=== PATIENT | male | born 1965 | race Hispanic/Latino ===

== ENCOUNTER 2017-01-10 19:11 | Observation (INO) | payer OTHER ==
[~2017-01-10] VITALS: Ht 160 cm; Wt 67.3 kg
[2017-01-10 19:22] VITALS: BP 133/61; PULSE 69; RESP 15; O2SAT 99
--- NOTE | 2017-01-10 19:31 | ED.REPORT ---
HPI-General Illness Date of Service Jan 10, 2017 ED Provider: Dr. Chicho Sahu This is a healthy 51-year-old male who presents via EMS for evaluation of near syncope and tongue and facial numbness. Evidently he was watching a movie in bed when he fell asleep. He got up out of bed and walk to his kitchen. As he was walking towards the kitchen he started to feel like he was going to black out. He then noticed that the left side of his face and the left side of his tongue was tingling and then it went numb. He felt very lightheaded after that. He did not have any facial weakness though. His speech was rapid and articulate throughout. EMS was called. By the time they got there the facial deficits had resolved. He was hypotensive in the field. He is brought in for evaluation. He presents now with no specific complaints. All symptoms have resolved. Nursing Notes Stated Complaint: DIZZY Chief Complaint: General Complaint Nursing Notes Reviewed: Yes Allergies: Coded Allergies: No Known Allergies (Unverified Allergy, Unknown, 01/11/17) Scheduled PRN Sildenafil Citrate (Viagra) 25 Mg Tablet 25 MG PO UD PRN PRN for sexual activity General Time Seen by MD: 19:31 Chief Complaint Dizziness Hx Obtained From: Spouse, Son, Daughter, Pressure Test Operator Arrived By: Ambulance Sudden in Onset?: Yes Onset Occurred: Just prior to arrival Symptom Duration: Since onset Severity: Current: No pain currently Recent Healthcare: No recent doctor visit, No recent hospitalization Similar Sx Previous: No Past Medical History Past Medical History healthy Past Surgical History denies Smoking History Unknown if Ever Smoker Social History Alcohol Use: "Social" Other Social History: Good social support, Local resident Ambulatory Status Independent Review of Systems Full Review of Systems Respiratory: Denies: Shortness of breath Cardiovascular: Denies: Chest pain GI: Denies: Nausea, Vomiting Neurologic: Reports: Dizziness, Lightheaded, Numbness (tongue numbness), Denies: Abnormal movement, Change LOC, Focal weakness, Headache, Slurred speech, Syncope, Weakness Complete sys rev & neg: except as marked. Physical Exam Vital Signs Vital Signs Date Time Temp Pulse Resp B/P Pulse Ox O2 Delivery O2 Flow Rate FiO2 01/10/17 23:01 57 16 126/63 97 Room Air 01/10/17 20:30 71 16 123/60 98 Room Air 01/10/17 19:22 37.1 69 15 133/61 99 Room Air Initial VS: Reviewed General/Constitutional: Awake, Alert, Well appearing Head / Eyes: Atraumatic, Normocephalic no facial droop Mouth: Positive: Mucous membranes dry tongue numbness Respiratory / Chest: Atraumatic, Breath sounds NL, Breath sounds = bilat Cardiovascular: Heart rate NL, Regular rhythm, Heart sounds NL Upper Extremities Upper Extremity / MS: Atraumatic, Full range of motion, No deformity Wrist / Hand: Atraumatic, Full range of motion, No deformity Lower Extremity / Pelvis / MS: Atraumatic, Full range of motion, No deformity Ankle / Foot: Atraumatic, Full range of motion, No deformity Skin: Atraumatic, Color NL, No rash Neurologic: Oriented X3, Speech NL, No motor deficits Interpretation & Diagnostics Lab Results Interpretation Result Diagram: 01/10/17192101/10/171921 Test 01/10/17 00:55 01/10/17 19:22 01/10/17 22:45 01/10/17 22:49 Urine Color Straw (YELLOW) Urine Appearance Clear (CLEAR,HAZY) Urine pH 6.5 (5.0-8.0) Urine Specific [place] 1.004 (1.003-1.035) Urine Protein Negativemg/dL (NEG,TRACE) Urine Glucose (UA) Negativemg/dL (NEGATIVE) Urine Ketones Negativemg/dL (NEGATIVE) Urine Occult Blood Negative (NEGATIVE) Urine Nitrite Negative (NEGATIVE) Urine Bilirubin Negative (NEGATIVE) Urine Urobilinogen Normalmg/dL (NORMAL) Urine Leukocyte Esterase Negative (NEGATIVE) Urine RBC 0-2/hpf (0-2) Urine WBC 0-5/hpf (0-5) Urine Epithelial Cells Occasional/hpf (NONE-MOD) Urine Crystals None seen (NONE SEEN) Urine Bacteria None/hpf (NONE-FEW) Urine Hyaline Casts None/lpf (NONE) Urine Granular Casts None seen (NONE SEEN) Urine Waxy Casts None seen (NONE SEEN) Urine Red Blood Cell Casts None seen (NONE SEEN) Urine White Blood Cell Casts None seen (NONE SEEN) Urine Mucus None seen (None Seen) Urine Trichomonas None seen (NONE SEEN) Urine Yeast None (NONE SEEN) Urinalysis Comment None Urine Culture Reflexed Not indicated White Blood Count 6.8th/mm3 (3.8-10.1) Red Blood Count 4.16mil/mm3 (4.40-5.80) Hemoglobin 12.2g/dL (13.8-17.2) Hematocrit 36.8% (41.0-50.0) Mean Corpuscular Volume 88.5fL (81-100) Mean Corpuscular Hemoglobin 29.3pg (27.0-35.0) Mean Corpuscular Hemoglobin Concent 33.2% (32.0-37.0) Red Cell Distribution Width 13.4% (12.3-15.4) Platelet Count 342bil/L (150-400) Neutrophils (%) (Auto) 29.2% (40-74) Lymphocytes (%) (Auto) 54.3% (14-46) Monocytes (%) (Auto) 9.4% (4-12) Eosinophils (%) (Auto) 6.5% (0-5) Basophils (%) (Auto) 0.3% (0-3) D-Dimer < 0.50mg/L FEU (<0.50) Sodium Level 137mEq/L (134-144) Potassium Level 3.6mEq/L (3.5-5.2) Chloride Level 100mEq/L (97-108) Carbon Dioxide Level 23mmol/L (18-29) Blood Urea Nitrogen 21mg/dL (6-24) Creatinine 0.72mg/dL (0.76-1.27) Estimat Glomerular Filtration Rate 122mL/min (>59) Glucose Level 139mg/dL (60-99) Calcium Level 8.5mg/dL (8.5-10.1) Magnesium Level 2.0mg/dL (1.6-2.6) Total Bilirubin 0.2mg/dL (0.0-1.2) Aspartate Amino Transf (AST/SGOT) 19U/L (0-50) Alanine Aminotransferase (ALT/SGPT) 15U/L (0-44) Alkaline Phosphatase 64U/L (25-150) Total Protein 6.1g/dL (6.4-8.4) Albumin 3.7g/dL (3.4-5.0) Troponin T 0.010ug/L (0.0-0.011) Triglycerides Level 104mg/dL (0-149) Cholesterol Level 165mg/dL (100-199) LDL Cholesterol, Calculated 83mg/dL (0-99) VLDL Cholesterol 20.800mg/dL HDL Cholesterol 61mg/dL (>39) Cholesterol/HDL Ratio 2.70 (0.0-4.4) ECG Interpretation Time: 21:34 Interpreted by: ED physician Normal ECG Interpretation: Normal sinus rhythm (rate 66) X-Ray Chest Interpretation Chest Xray Interpretation: IMPRESSION: No acute process. Dictated by: Giovanni Portillo M.D. on 01/10/2017 at 19:49 Approved by: Giovanni Portillo M.D. on 01/10/2017 at 19:49 View: Portable Interpretation / Wet Read by: Interpret - Radiologist CT Head Interpretation IMPRESSION: No acute intracranial abnormality. Dictated by: Giovanni Portillo M.D. on 01/10/2017 at 21:05 Approved by: Giovanni Portillo M.D. on 01/10/2017 at 21:06 Study: Head CT no contrast Interpretation / Wet Read by: Interpret - Radiologist Re-Eval/Medical Decision Med Decision/Clinical Course 2035: Plan for x-ray, fluid, EKG This certainly could have been orthostatic syncope. I cannot explain the left facial and tongue numbness though. TIAs in the differential. CAT scan of his brain was normal. NIH is now 0. He will be admitted to telemetry observation for MRI and conclusion of the stroke workup protocol. I will treat him with fluids and oral aspirin. Time of Eval: 20:36 Re-Evaluation/Progress Note: Plan for x-ray, fluid, EKG Consultation : Referral / Consult Name: Madiha Gibbs DO Consulted With: Hospitalist Call Returned at: 23:31 Chip Frier: Agrees with eval, Agrees with plan, Accepts admit Counseled Regarding: Diagnosis, Lab results, Need for follow-up, When/why to return to ED Discharge & Departure Primary Impression: Transient ischemic attack (TIA) Transient cerebral ischemia type: other Qualified Code: G45.8 - Other transient cerebral ischemic attacks and related syndromes Additional Impression: Near syncope Disposition: ADMITTED TO HOSPITAL Discharge Condition All VS Reviewed: Yes Condition: Stable Referrals: Jacob Young MD (PCP) Scribe Attestation Portion of this note were transcribed by Janelle Godoy. IDr. Sahu, personally performed the history, physical exam, and medical decision-making: I reviewed and confirmed the accuracy for the information in the transcribed note. Signed by: jj Cowan, 01/10/17 2200 copies to: Jacob Young MD, Todd P DO Jan 10, 2017 19:31 Janelle Godoy Jan 10, 2017 20:36
[2017-01-10 19:46] LABS: BASOPHILS % (AUTO) 0.3 % (0-3); EOSINOPHILS % (AUTO) 6.5 % (0-5); MONOCYTES % (AUTO) 9.4 % (4-12); Mean Corpuscular Hemoglobin 29.3 pg (27.0-35.0); Mean Corpuscular Volume 88.5 fL (81-100); NEUTROPHILS % (AUTO) 29.2 % (40-74); Platelet Count 342 bil/L (150-400)
--- NOTE | 2017-01-10 19:50 | DRSVH ---
PROCEDURE: X-RAY CHEST ONE VIEW, PORTABLE ([id number]) INDICATIONS: CHEST PAIN TECHNIQUE: One view of the chest was acquired. COMPARISON: None. FINDINGS: Surgical changes and devices: None. Lungs and pleura: No pleural effusions or pneumothorax. Lungs are clear. Mediastinum: Mediastinal contours appear normal. Heart size is normal. Bones and chest wall: No suspicious bony lesions. Overlying soft tissues appear unremarkable. IMPRESSION: No acute process. Dictated by: Giovanni Portillo M.D. on 01/10/2017 at 19:49 Approved by: Giovanni Portillo M.D. on 01/10/2017 at 19:49
[2017-01-10 20:01] LABS: TROPONIN T < 0.010 ug/L (0.0-0.011)
[2017-01-10 20:30] VITALS: BP 123/60; PULSE 71; RESP 16; O2SAT 98
[2017-01-10] MEDS ORDERED: 0.9% Sodium Chloride 1,000 ML IV SCH (20:40)
--- NOTE | 2017-01-10 21:07 | DRSVH ---
PROCEDURE: CT BRAIN WITHOUT CONTRAST ([id number]) INDICATIONS: near syncope, dizzy, tongue numbness TECHNIQUE: Noncontrast 4.5 mm thick angled axial sections acquired from the foramen magnum to the vertex, with c oronal reformats. COMPARISON: None. FINDINGS: Image quality: Excellent. CSF spaces: Basal cisterns are patent. No extra-axial fluid collections. Ventricles are normal in size and shape. Brain: No midline shift. No intracranial masses or hemorrhage. Garrido-white matter interface is norm al. Skull and face: Calvarium and visualized facial bones are intact, without suspicious lesions. Sinuses: Visualized sinuses and mastoids are clear. IMPRESSION: No acute intracranial abnormality. Dictated by: Giovanni Portillo M.D. on 01/10/2017 at 21:05 Approved by: Giovanni Portillo M.D. on 01/10/2017 at 21:06
[2017-01-10] MEDS ORDERED: 0.9% Sodium Chloride 1,000 ML IV ONE (22:40)
[2017-01-10 23:01] VITALS: BP 126/63; PULSE 57; RESP 16; O2SAT 97
[2017-01-10] MEDS ORDERED: Alum-Mag Hydrox-Simeth 30 mL Suspension PO PRN (23:50)
[2017-01-10] MEDS ORDERED: Ondansetron 2 mg/mL 2 mL Inj IVPUSH PRN (23:50)
[2017-01-10] MEDS ORDERED: VIAG25T PO (23:56)
[2017-01-11] VITALS (8 sets, daily range): BP systolic 125–149; BP diastolic 67–88; PULSE 52–60; RESP 16–18; O2SAT 97–99
[2017-01-11] MEDS ORDERED: Alum-Mag Hydrox-Simeth 30 mL Suspension PO PRN (00:55)
[2017-01-11] MEDS ORDERED: Polyethylene Glycol (PEG) 17 Gm Powder PO PRN (00:55)
[2017-01-11] MEDS ORDERED: Ondansetron 2 mg/mL 2 mL Inj IVPUSH PRN (00:55)
[2017-01-11 01:12] LABS: APPEARANCE,URINE CLEAR (CLEAR,HAZY); COLOR,URINE STRAW (YELLOW); OCCULT BLOOD,URINE NEGATIVE (NEGATIVE); PH,URINE 6.5 (5.0-8.0); UROBILINOGEN,URINE NORMAL (NORMAL)
--- NOTE | 2017-01-11 01:32 | NUR ---
ADMIT; 51 yr old male to room 1012 via gurney from e.r. with c/o left facial numbness and lightheadedness upon getting up at home. Lightheadedness lasted a short time and numbness lasted about 2 hrs pt stated. Denies any problems at this time. Stephanie calderón done in e.r. and pt. "passed" per Staci Thompson rn.
--- NOTE | 2017-01-11 02:42 | PCM.HPMED ---
Subjective Date of Service Jan 10, 2017 Primary Provider: Admitting Physician: Madiha Gibbs DO Primary Care Physician: Jacob Young MD Attending Physician: Admit Status: From the Emergency Department Chief Complaint: TIA History of Present Illness: Bradley Wilson is a Burkinan-speaking 51-year-old male without any significant past medical history who presents via EMS with near syncope and tongue and facial numbness. He says that when he woke up from a lying position and stood up, he felt light-headed and said that the room was spinning. He also says that he had left-sided numbness of his face and tongue, without any weakness. EMS was called and by the time they got there, the facial deficits had resolved, however he was hypotensive. He did not fall or have any loss of consciousness. He says that similar symptoms occurred once about 2-3 years ago and another time more than 18 years ago, and he may have lost consciousness on that first episode. He remembers that they could not find anything wrong with him at that time. He does note that he does feel like he's very thirsty and urinates frequently. Today, he denies fever, nausea, vomiting. He denies chest pain or pressure, cough, shortness of breath. He denies changes in vision, weakness. He also denies any problems with his vision, concentration, or focus. In the ED he did not present with any neurological deficits. Review of Systems: A comprehensive review of systems was conducted with the patient and found to be negative except as above in the History of Present Illness. Allergies Coded Allergies: No Known Allergies (Unverified Allergy, Unknown, 01/11/17) Home Medications None PMH None Reported Surgical History Ear Surgery Family History Unknown history of parents Sister: Hyperthyroidism Social History Occupation: Sales Service Supervisor Hx Alcohol Use: Yes (a couple drinks a month) Hx Substance Use: No Smoking Status: Never Smoker Living Arrangement: with Family Exam Vital Signs Vital Sign - Last Date Time Temp Pulse Resp B/P Pulse Ox O2 Delivery O2 Flow Rate FiO2 01/10/17 23:01 57 16 126/63 97 Room Air 01/10/17 19:22 37.1 Exam General: No acute distress, well-developed, well-nourished, appropriately interactive HEENT: Normocephalic, atraumatic. External ears without defect. Pupils equal, round, and reactive to light and accommodation. Anicteric sclerae, moist conjunctivae. Neck: Supple with full range of motion. No jugular venous distension. No bruits. No lymphadenopathy or thyromegaly. Cardiovascular: Regular rate and rhythm with no murmurs, rubs, or gallops appreciated Pulmonary: Clear to auscultation bilaterally with no crackles, wheezes, or rhonchi. Normal respiratory effort with no use of accessory muscles. Abdomen: Bowel tones present. Soft, nontender, nondistended. No hepatosplenomegaly or masses appreciated. Extremities: No clubbing, cyanosis, edema, or lymphadenopathy appreciated. Skin: Normal temperature, turgor, and texture; no rash, ulcers, or subcutaneous nodules appreciated. Neurological: Cranial nerves II-XII intact. Normal muscle strength, tone, and bulk. Reflexes, coordination, and sensory function within normal limits. No known gait impairment. Psychiatric: Normal mood and affect. Alert and oriented to person, place, and time. Lab and Diagnostics Labs Item Value Date Time Troponin T < 0.010 ug/L 01/10/171921 Troponin T 0.010 ug/L 01/10/172244 Triglycerides Level 104 mg/dL 01/10/172248 Cholesterol Level 165 mg/dL 01/10/172248 LDL Cholesterol, Calculated 83 mg/dL 01/10/172248 VLDL Cholesterol 20.800 mg/dL 01/10/172248 HDL Cholesterol 61 mg/dL 01/10/172248 Cholesterol/HDL Ratio 2.70 01/10/172248 D-Dimer < 0.50 mg/L FEU 01/10/171921 Result Diagram: 01/10/17192101/10/171921 X-Rays, CTs and MRIs PROCEDURE: X-RAY CHEST ONE VIEW, PORTABLE ([id number]) IMPRESSION: No acute process. Dictated and Approved by: Giovanni Portillo M.D. on 01/10/2017 at 19:49 PROCEDURE: CT BRAIN WITHOUT CONTRAST ([id number]) IMPRESSION: No acute intracranial abnormality. Dictated by: Giovanni Portillo M.D. on 01/10/2017 at 21:05 12-lead ECG Normal Sinus Rhythm Assessment & Plan Bradley Wilson is a Burkinan-speaking 51-year-old male without any significant past medical history who presented via EMS with near syncope and tongue and facial numbness, being worked up for TIA. Transient Ischemic Attack, Present on Admission Patient had left sided jaw numbness and tongue numbness. Resolved by the time EMS arrived however symptoms returned in ED. CT head unremarkable. Possible relation to orthostatic bp - Echocardiogram with Bubble Study - CTA Head and Neck, MRI Stroke protocol - Monitor on Telemetry - ASA given x1, ASA 325 daily - Atorvastatin 40mg qHS - Lipid panel, HgA1C, TSH, UA pending - Trop negative x2 - Orthostatic BP Elevated glucose, present on admission -no history of diabetes -hgbA1c pending Normocytic anemia, acute, POA -unclear baseline -continue to monitor Patient Status: Patient is admitted under observation status with expected length of stay less than 2 midnights due to severity of presenting symptoms and risk of adverse event. Code Status: Full Code GI Prophylaxis: Not indicated VTE Prophylaxis: Sub-Q Heparin (Unfractionated) VTE Mechanical Devices: Intermittant Pneumatic CD Resuscitation Status: CPR: Attempt Resuscitation Attending Statement The patient was seen and examined together with house staff on 01/10/2017 and I agree with the history, exam and plan as outlined in the note above. Roberto Gómez DO Jan 10, 2017 23:37 Madiha Gibbs DO Jan 11, 2017 03:52
--- NOTE | 2017-01-11 05:03 | NUR ---
NEURO CHECKS; wnl. No c/o voiced. Slept well during the night. and daughter in room. Addendum: 01/11/17 at 0508 by GUADALUPE GARSIA RN Doctor in to see pt at this time.
[2017-01-11 06:20] LABS: BASOPHILS % (AUTO) 0 % (0-3); EOSINOPHILS % (AUTO) 3.5 % (0-5); MONOCYTES % (AUTO) 9.4 % (4-12); Mean Corpuscular Hemoglobin 28.7 pg (27.0-35.0); Mean Corpuscular Volume 88.5 fL (81-100); NEUTROPHILS % (AUTO) 53.8 % (40-74); Platelet Count 290 bil/L (150-400)
[2017-01-11] MEDS: Heparin 5,000 Unit/mL Inj SUBQ SCH ×2 (08:47→16:30)
--- NOTE | 2017-01-11 12:26 | DRSVH ---
[facility] [address] [place] [address] Echocardiogram Report Name: DANIEL BLAIR Study Date: 01/11/2017 Height: 63 in Hospital Exam Location: [facility] Weight: 148 lb Gender: Male BSA: 1.7 m2 : 1965 Age: 51 yrs BP: 125/72 mmHg Reason For Study: TIA Ordering Physician: HOSPITALIST [facility] Performed By: Huber Montejo Referring Physician: Kirill [facility]ist Interpretation Summary Report prepared by Nallely Haro The left ventricle is normal in size, wall thickness, and systolic function without any focal wall motion abnormalities. The ejection fraction is estimated to be 60-65%. Bubble injected , a few bubbles seen on the left side after 9 cardiac cycles. There is no Doppler evidence for an interatrial shunt. There is no significant valvular heart disease. Procedure: A two-dimensional transthoracic echocardiogram with color flow and Doppler was performed. The study quality was technically adequate. There is no prior echocardiogram noted for this patient. A saline contrast injection was performed to assess for cardiac shunting. The patient was in normal sinus rhythm during the exam. Left Ventricle: The left ventricle is normal in size, wall thickness, and systolic function without any focal wall motion abnormalities. The ejection fraction is estimated to be 60-65%. Assessment of diastolic parameters indicates normal left ventricular diastolic function and normal filling pressures. Right Ventricle: The right ventricle is normal in size and function. Atria: Both atria are normal in size. There is no Doppler evidence for an interatrial shunt. Bubble injected , a few bubbles seen on the left side after 9 cardiac cycles. Mitral Valve: The mitral valve is normal in structure and function. There is trace mitral regurgitation. Aortic Valve: The aortic valve is trileaflet. The aortic valve opens well. No aortic regurgitation is present. Tricuspid Valve: The tricuspid valve is normal in structure and function. There is trace tricuspid regurgitation. The right ventricular systolic pressure is estimated at 22 mmHg assuming a right atrial pressure of 3 mm Hg. Pulmonic Valve: The pulmonic valve is normal in structure and function. There is trace pulmonic regurgitation. Great Vessels: The aortic root is normal size. The ascending aorta is normal in size. The aortic arch is normal in size. The pulmonary artery is normal size. The IVC is of normal diameter and collapses greater than 50% with a sniff. This suggests a low right atrial pressure of 3 mm Hg. Pericardium/ Pleura There is no pericardial effusion. There is no pleural effusion. MMode/2D Measurements & Calculations LVIDd: 5.3 cm RA long axis LVOT diam LVIDs: 3.2 cm LA A2 area: 19.2 cm FS: 39.8 % LA A4 area: 19.2 cm RA area AoV Opening EPSS: 0.82 cm LA length (vol): 5.8 cm IVSd: 0.85 cm LA vol: 54.0 ml : 17.1 cm Ao root diam LVPWd: 0.77 cm LA vol index RA vol : 47.8 ml asc Aorta RA Diam: 3.3 cm IVC diam: 1.5 cm : 28.1 mm2 LV foreman. diameter/BSA LV sys. diameter/BSA RVD1 (basal) RVD2 (mid) (cm/m^2): 3.1 (cm/m^2): 1.9 : 2.8 cm Doppler Measurements & Calculations Ao V2 max MV E max jcarlos MV E/A: 1.2 TR max jcarlos : 195.5 cm/sec : 89.5 cm/sec Med Peak E' Jcarlos : 218.6 cm/sec Ao max P.3 mmHg MV A max jcarlos TR max PG Ao mean P.0 mmHg : 76.2 cm/sec E/E' med: 8.9 : 19.1 mmHg LVOT Max Jcarlos Lat Peak E' Jcarlos PA V2 max : 105.5 cm/sec : 104.4 cm/sec CEDRIC(I,D): 2.2 cm E/E' lat: 6.1 PA mean PG sev ratio: 0.60 E/e' average: 7.5 PA Accel Time : 0.13 sec MV dec time: 0.20 sec Ao V2 mean LV V1 max PG PA V2 mean : 133.3 cm/sec : 80.9 cm/sec Ao V2 VTI: 38.1 cmLV V1 VTI: 22.7 cm CEDRIC(V,D): 1.9 cm2 CEDRIC indexed to BSA (cm^2/m^2): 1.3 Electronically signed by: Antonio Baltazar on Reading Physician:01/11/2017 12:25 PM
--- NOTE | 2017-01-11 13:49 | NUR ---
Social Work: Screening/Readiness for Discharge/Multi-Disciplinary Rounds D: EMR reviewed. Pt is a 51 y/o male Abelardo for TIA, near syncope per H&P. Pt does not have a readmit risk score assigned. SW met with pt and at bedside to conduct initial screening. Pt was alert and oriented x3. SW explained role and wrote phone number on white board and encouraged pt to contact SW for any discharge planning questions. Pt's insurance is [facility]. PCP is Jacob Young MD. SW provided DPOA/advanced directive ppw and instructions in Serbian - family stated pt can read Nepalese and they will help him complete ppw. A: Pt who is independent at baseline. Pt's capacity for self care addressed in rounds - no concerns identified. P: Pt to transport home with family via POV. YANETH Griffith
--- NOTE | 2017-01-11 15:18 | DRSVH ---
PROCEDURE: MRI STROKE PROTOCOL ([id number]) Pre- and post-contrast brain MRI, non-contrast brain MR angiogram, pre- and postcontrast neck MR jassi ogram INDICATIONS: Near syncope. TECHNIQUE: Brain: Noncontrast axial T1 spin echo, axial T2 fast spin echo, sagittal and axial FLAIR, coronal T2 fast spin echo, axial gradient echo, axial diffusion and ADC through the brain. After the administr ation of contrast, axial 3D VIBE of the cranial vasculature and brain. Brain MRA: Non-contrast 3-D time of flight MR angiogram, with multiple aocfzqy-awhcchxbf-qjzkytezdg (MIP) reformats performed. Neck MRA: Axial and sagittal TruFISP through the neck. Coronal dynamic MR angiogram during administ ration of contrast in the arterial and venous phases, with 3-dimenstional eazkstr-ijrpgeumw-kipvehunv n (MIP) reformats constructed from subtraction images. COMPARISON: [facility], CT, CT BRAIN WO CON, 01/10/2017, 20:57. FINDINGS: Image quality: Excellent. BRAIN: CSF spaces: Ventricles are normal in size and shape. Basal cisterns are patent. No extra-axial flu id collections. Brain: No intracranial bleeds or mass effects. There is a mild degree of patchy high FLAIR signal i ntensity predominantly located within the bifrontal periventricular and subcortical white matter. Gra y-white matter interface is normal. Diffusion weighted images show no acute ischemic insults. Brain stem appears normal. Normal intravascular flow voids are present. No abnormal intracranial enhancem ent. Skull and face: Calvarial marrow signal is normal. Orbits appear normal. Sinuses: Right maxillary sinus retention cyst is present. Moderate mucosal thickening within the righ t anterior ethmoid air cells is present. Mastoids are clear. BRAIN MR ANGIOGRAM: Anterior circulation: Intracranial internal carotid arteries are normal in size and enhancement. Th e flow within the paired anterior cerebral arteries is normal and symmetric. The flow within the mid dle cerebral arteries is normal and symmetric. The anterior communicating artery is seen. No stenos es, occlusions, or aneurysms. Posterior circulation: The visualized portions of the vertebral arteries demonstrate normal caliber, and join to form a normal appearing basilar artery. The flow within the posterior cerebral arteries is normal and symmetric. No stenoses, occlusions, or aneurysms. NECK MR ANGIOGRAM: Carotids: Great vessels demonstrate a conventional anatomy as they arise from the aortic arch. The origins of the common carotid arteries appear patent. The calibers and courses of both common caroti d arteries are normal. The bifurcation regions appear normal bilaterally. The internal carotid silverio lucrecia demonstrate normal course and caliber. Posterior circulation: The origins of the vertebral arteries appear patent. More superior portions of both vertebral arteries are not well-seen secondary to venous overlap. Distal bilateral vertebral arteries are patent. Miscellaneous: Subclavian arteries appear patent. Pre-contrast images through the neck show no soft tissue abnormalities. IMPRESSION: BRAIN MRI: 1. No acute intracranial abnormality. No recent infarct. 2. Mild nonspecific white matter disease predominantly within the bilateral frontal lobes. Differenti al considerations include early small vessel ischemic disease, diabetes mellitus, vasculitides, and d emyelinating disorders, such as multiple sclerosis. BRAIN MR ANGIOGRAM: Negative cerebral MR angiography. NECK MR ANGIOGRAM: 1. No internal carotid artery stenosis bilaterally. 2. Suboptimally visualized vertebral arteries which are patent as visualized. The estimate of stenosis included in the report of the imaging study was calculated using the NASCET method Dictated by: Giovanni Portillo M.D. on 01/11/2017 at 15:09 Approved by: Giovanni Portillo M.D. on 01/11/2017 at 15:15
[2017-01-11] MEDS ORDERED: ASPI81TA3 PO (16:15)
[2017-01-11] MEDS ORDERED: ATOR40TA69 PO (16:15)
--- NOTE | 2017-01-11 16:15 | PCM.PNMED ---
Subjective Date of Service Jan 11, 2017 Subjective Pt says symptoms have resolved. Exam Vital Signs Vital Sign - Last Date Time Temp Pulse Resp B/P Pulse Ox O2 Delivery O2 Flow Rate FiO2 01/11/17 12:45 37.1 57 18 142/72 99 Room Air Intake and Output 01/10/17 01/10/17 01/11/17 Cumulative From/Thru 15:00 23:00 07:00 01/10/17 22:56 - 01/11/17 01:18 Intake Total 2000 ml 2000 ml Balance 2000 ml 2000 ml Intake IV Total 2000 ml 2000 ml Exam General: No acute distress, well-developed, well-nourished, appropriately interactive HEENT: Normocephalic, atraumatic. External ears without defect. Pupils equal, round, and reactive to light and accommodation. Anicteric sclerae, moist conjunctivae. Neck: Supple with full range of motion. No jugular venous distension. No bruits. No lymphadenopathy or thyromegaly. Cardiovascular: Regular rate and rhythm with no murmurs, rubs, or gallops appreciated Pulmonary: Clear to auscultation bilaterally with no crackles, wheezes, or rhonchi. Normal respiratory effort with no use of accessory muscles. Abdomen: Bowel tones present. Soft, nontender, nondistended. No hepatosplenomegaly or masses appreciated. Extremities: No clubbing, cyanosis, edema, or lymphadenopathy appreciated. Skin: Normal temperature, turgor, and texture; no rash, ulcers, or subcutaneous nodules appreciated. Neurological: Cranial nerves II-XII intact. Normal muscle strength, tone, and bulk. Reflexes, coordination, and sensory function within normal limits. No known gait impairment. Psychiatric: Normal mood and affect. Alert and oriented to person, place, and time IVs and Medications Medications Reviewed: Medications were reviewed in detail Lab and Diagnostics Result Diagram: 01/11/17 0550 01/11/17 0550 X-Rays, CTs and MRIs Date of Service: 01/11/17 0800 MRI STROKE PROTOCOL ([id number]) BRAIN MRI: 1. No acute intracranial abnormality. No recent infarct. 2. Mild nonspecific white matter disease predominantly within the bilateral frontal lobes. Differential considerations include early small vessel ischemic disease, diabetes mellitus, vasculitides, and demyelinating disorders, such as multiple sclerosis. BRAIN MR ANGIOGRAM: Negative cerebral MR angiography. NECK MR ANGIOGRAM: 1. No internal carotid artery stenosis bilaterally. 2. Suboptimally visualized vertebral arteries which are patent as visualized 01/11- Echo- The left ventricle is normal in size, wall thickness, and systolic function without any focal wall motion abnormalities. The ejection fraction is estimated to be 60-65%. Bubble injected , a few bubbles seen on the left side after 9 cardiac cycles. There is no Doppler evidence for an interatrial shunt. There is no significant valvular heart disease. PROCEDURE: X-RAY CHEST ONE VIEW, PORTABLE ([id number]) IMPRESSION: No acute process. Dictated and Approved by: Giovanni Portillo M.D. on 01/10/2017 at 19:49 PROCEDURE: CT BRAIN WITHOUT CONTRAST ([id number]) IMPRESSION: No acute intracranial abnormality. Dictated by: Giovanni Portillo M.D. on 01/10/2017 at 21:05 12-lead ECG Normal Sinus Rhythm Assessment & Plan Bradley Wilson is a Montenegrin-speaking 51-year-old male without any significant past medical history who presented via EMS with near syncope and tongue and facial numbness, being worked up for TIA. #Transient Ischemic Attack, Present on Admission, resolved. Patient had left sided jaw numbness and tongue numbness. Resolved by the time EMS arrived however symptoms returned in ED. CT head unremarkable. Possible relation to orthostatic bp - Echocardiogram with Bubble Study- EF 65%. No evidence of shunt. - CTA Head and Neck, MRI Stroke protocol- no acute evidence of stroke. - Monitor on Telemetry- no arrhythmias noted. - Lipid panel, HgA1C- pending. , TSH- 1.01 , UA- unremarkable. Lipid Panel- WNL. - Trop negative x2 - c/w ASA 325 daily - Atorvastatin 40mg qHS #Presyncope- Echo had EF 65%. Consider orthostatic Hypotension 2/2 to Viagra. Pt is not on beta marbin. HR<60 consistently. No arrythmia on cardiac monitoring. #Elevated glucose, present on admission -no history of diabetes -hgbA1c pending #Normocytic anemia, acute, POA -unclear baseline -continue to monitor Patient Status: Patient is admitted under observation status with expected length of stay less than 2 midnights due to severity of presenting symptoms and risk of adverse event. Code Status: Full Code GI Prophylaxis: Not indicated VTE Prophylaxis: Sub-Q Heparin (Unfractionated) VTE Mechanical Devices: Intermittant Pneumatic CD Resuscitation Status: CPR: Attempt Resuscitation Noble Cunha MD Jan 11, 2017 16:15
--- NOTE | 2017-01-11 16:24 | PCM.DIMED ---
Discharge Instructions Date of Service Jan 11, 2017 Dates of Hospitalization Jan 10, 2017 at 23:52 Discharge Diagnosis Discharge Diagnosis #Transient Ischemic Attack, Present on Admission, resolved. #Elevated glucose without dx of diabetes. present on admission #Normocytic anemia, acute, POA #Presyncope, possible. Medication Instructions Additional med instructions Have added new medications Aspirin and Atorvastatin for stroke prevention. Test Results Test Results Date of Service: 01/10/172036 PROCEDURE: CT BRAIN WITHOUT CONTRAST ([id number]) INDICATIONS: near syncope, dizzy, tongue numbness TECHNIQUE: Noncontrast 4.5 mm thick angled axial sections acquired from the foramen magnum to the vertex, with coronal reformats. COMPARISON: None. FINDINGS: Image quality: Excellent. CSF spaces: Basal cisterns are patent. No extra-axial fluid collections. Ventricles are normal in size and shape. Brain: No midline shift. No intracranial masses or hemorrhage. Garrido-white matter interface is normal. Skull and face: Calvarium and visualized facial bones are intact, without suspicious lesions. Sinuses: Visualized sinuses and mastoids are clear. IMPRESSION: No acute intracranial abnormality. Date of Service: 01/11/17 0800 PROCEDURE: MRI STROKE PROTOCOL IMPRESSION: BRAIN MRI: 1. No acute intracranial abnormality. No recent infarct. 2. Mild nonspecific white matter disease predominantly within the bilateral frontal lobes. Differential considerations include early small vessel ischemic disease, diabetes mellitus, vasculitides, and demyelinating disorders, such as multiple sclerosis. BRAIN MR ANGIOGRAM: Negative cerebral MR angiography. NECK MR ANGIOGRAM: 1. No internal carotid artery stenosis bilaterally. 2. Suboptimally visualized vertebral arteries which are patent as visualized. 01/11- Echo- The left ventricle is normal in size, wall thickness, and systolic function without any focal wall motion abnormalities. The ejection fraction is estimated to be 60-65%. Bubble injected , a few bubbles seen on the left side after 9 cardiac cycles. There is no Doppler evidence for an interatrial shunt. There is no significant valvular heart disease. Diet Discharge Diet: Heart Healthy Patient Instructions Patient Instructions Results for your diabetes screening lab will be faxed to Dr. Young's office this week. Please make sure to follow up. Follow-up Provider: Jacob Young MD Follow-up with PCP in: 1 week Noble Cunha MD Jan 11, 2017 16:24
--- NOTE | 2017-01-11 17:06 | PCM.DC.MED ---
Discharge Summary Date of Service Jan 11, 2017 Dates of Hospitalization Date of Hospital Admission Jan 10, 2017 at 23:52 Date of Discharge: Jan 11, 2017 Providers: Admitting Physician: Madiha Gibbs DO Primary Care Physician: Jacob Young MD Attending Physician: Tennille Cunha MD Diagnosis at Time of Discharge Diagnosis at Time of Discharge #Transient Ischemic Attack, Present on Admission, resolved. #Elevated glucose without dx of diabetes. present on admission #Normocytic anemia, acute, POA #Presyncope, possible. Procedures XRay, CTs & MRIs Date of Service: 01/11/17 0800 MRI STROKE PROTOCOL ([id number]) BRAIN MRI: 1. No acute intracranial abnormality. No recent infarct. 2. Mild nonspecific white matter disease predominantly within the bilateral frontal lobes. Differential considerations include early small vessel ischemic disease, diabetes mellitus, vasculitides, and demyelinating disorders, such as multiple sclerosis. BRAIN MR ANGIOGRAM: Negative cerebral MR angiography. NECK MR ANGIOGRAM: 1. No internal carotid artery stenosis bilaterally. 2. Suboptimally visualized vertebral arteries which are patent as visualized 01/11- Echo- The left ventricle is normal in size, wall thickness, and systolic function without any focal wall motion abnormalities. The ejection fraction is estimated to be 60-65%. Bubble injected , a few bubbles seen on the left side after 9 cardiac cycles. There is no Doppler evidence for an interatrial shunt. There is no significant valvular heart disease. PROCEDURE: X-RAY CHEST ONE VIEW, PORTABLE ([id number]) IMPRESSION: No acute process. Dictated and Approved by: Giovanni Portillo M.D. on 01/10/2017 at 19:49 PROCEDURE: CT BRAIN WITHOUT CONTRAST ([id number]) IMPRESSION: No acute intracranial abnormality. Dictated by: Giovanni Portillo M.D. on 01/10/2017 at 21:05 ECG 12 Lead Normal Sinus Rhythm Brief History Bradley Wilson is a [place] Islander-speaking 51-year-old male without any significant past medical history who presents via EMS with near syncope and tongue and facial numbness. He says that when he woke up from a lying position and stood up, he felt light-headed and said that the room was spinning. He also says that he had left-sided numbness of his face and tongue, without any weakness. EMS was called and by the time they got there, the facial deficits had resolved, however he was hypotensive. He did not fall or have any loss of consciousness. He says that similar symptoms occurred once about 2-3 years ago and another time more than 18 years ago, and he may have lost consciousness on that first episode. He remembers that they could not find anything wrong with him at that time. He does note that he does feel like he's very thirsty and urinates frequently. Today, he denies fever, nausea, vomiting. He denies chest pain or pressure, cough, shortness of breath. He denies changes in vision, weakness. He also denies any problems with his vision, concentration, or focus. In the ED he did not present with any neurological deficits. Hospital Course Bradley Wilson is a [place] Islander-speaking 51-year-old male without any significant past medical history who presented via EMS with near syncope and tongue and facial numbness, being worked up for TIA. #Transient Ischemic Attack, Present on Admission, resolved. Patient had left sided jaw numbness and tongue numbness. Resolved by the time EMS arrived however symptoms returned in ED. CT head unremarkable. Possible relation to orthostatic bp - Echocardiogram with Bubble Study- EF 65%. No evidence of shunt. - CTA Head and Neck, MRI Stroke protocol- no acute evidence of stroke. - Monitor on Telemetry- no arrhythmias noted. - Lipid panel, HgA1C- pending. , TSH- 1.01 , UA- unremarkable. Lipid Panel- WNL. - Trop negative x2 - c/w ASA 325 daily - Atorvastatin 40mg qHS #Presyncope- Echo had EF 65%. Consider orthostatic Hypotension 2/2 to Viagra. Pt is not on beta marbin. HR<60 consistently. No arrythmia on cardiac monitoring. #Elevated glucose, present on admission -no history of diabetes -hgbA1c pending #Normocytic anemia, acute, POA -unclear baseline -continue to monitor Patient Status: Patient is admitted under observation status with expected length of stay less than 2 midnights due to severity of presenting symptoms and risk of adverse event. Code Status: Full Code Exam Vital Signs (Last) Date Time Temp Pulse Resp B/P Pulse Ox O2 Delivery O2 Flow Rate FiO2 01/11/17 12:45 37.1 57 18 142/72 99 Room Air Test 01/10/17 00:55 01/10/17 19:22 01/10/17 22:45 01/10/17 22:49 Urine Color Straw (YELLOW) Urine Appearance Clear (CLEAR,HAZY) Urine pH 6.5 (5.0-8.0) Urine Specific [place] 1.004 (1.003-1.035) Urine Protein Negativemg/dL (NEG,TRACE) Urine Glucose (UA) Negativemg/dL (NEGATIVE) Urine Ketones Negativemg/dL (NEGATIVE) Urine Occult Blood Negative (NEGATIVE) Urine Nitrite Negative (NEGATIVE) Urine Bilirubin Negative (NEGATIVE) Urine Urobilinogen Normalmg/dL (NORMAL) Urine Leukocyte Esterase Negative (NEGATIVE) Urine RBC 0-2/hpf (0-2) Urine WBC 0-5/hpf (0-5) Urine Epithelial Cells Occasional/hpf (NONE-MOD) Urine Crystals None seen (NONE SEEN) Urine Bacteria None/hpf (NONE-FEW) Urine Hyaline Casts None/lpf (NONE) Urine Granular Casts None seen (NONE SEEN) Urine Waxy Casts None seen (NONE SEEN) Urine Red Blood Cell Casts None seen (NONE SEEN) Urine White Blood Cell Casts None seen (NONE SEEN) Urine Mucus None seen (None Seen) Urine Trichomonas None seen (NONE SEEN) Urine Yeast None (NONE SEEN) Urinalysis Comment None Urine Culture Reflexed Not indicated D-Dimer < 0.50mg/L FEU (<0.50) Magnesium Level 2.0mg/dL (1.6-2.6) Troponin T 0.010ug/L (0.0-0.011) Triglycerides Level 104mg/dL (0-149) Cholesterol Level 165mg/dL (100-199) LDL Cholesterol, Calculated 83mg/dL (0-99) VLDL Cholesterol 20.800mg/dL HDL Cholesterol 61mg/dL (>39) Cholesterol/HDL Ratio 2.70 (0.0-4.4) Test 01/11/17 05:50 White Blood Count 4.9th/mm3 (3.8-10.1) Red Blood Count 4.07mil/mm3 (4.40-5.80) Hemoglobin 11.7g/dL (13.8-17.2) Hematocrit 36.0% (41.0-50.0) Mean Corpuscular Volume 88.5fL (81-100) Mean Corpuscular Hemoglobin 28.7pg (27.0-35.0) Mean Corpuscular Hemoglobin Concent 32.5% (32.0-37.0) Red Cell Distribution Width 13.4% (12.3-15.4) Platelet Count 290bil/L (150-400) Neutrophils (%) (Auto) 53.8% (40-74) Lymphocytes (%) (Auto) 33.1% (14-46) Monocytes (%) (Auto) 9.4% (4-12) Eosinophils (%) (Auto) 3.5% (0-5) Basophils (%) (Auto) 0% (0-3) Sodium Level 140mEq/L (134-144) Potassium Level 3.9mEq/L (3.5-5.2) Chloride Level 106mEq/L (97-108) Carbon Dioxide Level 23mmol/L (18-29) Blood Urea Nitrogen 16mg/dL (6-24) Creatinine 0.63mg/dL (0.76-1.27) Estimat Glomerular Filtration Rate 142mL/min (>59) Glucose Level 109mg/dL (60-99) Calcium Level 8.1mg/dL (8.5-10.1) Total Bilirubin 0.3mg/dL (0.0-1.2) Aspartate Amino Transf (AST/SGOT) 17U/L (0-50) Alanine Aminotransferase (ALT/SGPT) 16U/L (0-44) Alkaline Phosphatase 60U/L (25-150) Total Protein 5.5g/dL (6.4-8.4) Albumin 3.5g/dL (3.4-5.0) Thyroid Stimulating Hormone (TSH) 1.010uIU/mL (0.450-4.500) Discharge Medications Discharge Medications Aspirin Chew (Aspirin Chew) 81 Mg Chew 81 MG PO DAILY Prescribed by: TENNILLE CUNHA MD Atorvastatin Calcium (Atorvastatin Calcium) 40 Mg Tablet 40 MG PO HS Prescribed by: TENNILLE CUNHA MD As needed Sildenafil Citrate (Viagra) 25 Mg Tablet 25 MG PO UD PRN PRN for sexual activity (Reported) Additional med instructions Have added new medications Aspirin and Atorvastatin for stroke prevention. Followup Plan Disposition: Home Discharge Diet: Heart Healthy Patient Instructions Results for your diabetes screening lab will be faxed to Dr. Young's office this week. Please make sure to follow up. Follow-up Provider: Jacob Young MD Follow-up with PCP in: 1 week Tennille Cunha MD Jan 11, 2017 17:06
[2017-01-11] MEDS ORDERED: HYDROmorphone 1 mg/mL Inj IVPUSH ONE (18:50)
--- NOTE | 2017-01-11 19:36 | NUR ---
Discharge Pt to discharge to home with family; A&Ox3, amb ind in room, 1 IV access discontinued, no c/o pain, VSS. Pt given written and verbal instructions in Uzbek with flap curer in room and states verbal understanding of all medications, and times to be taken, f/u with PCP within 1 week and take copies of documentation given from this hospital visit. Pt understands that results of A1C will be faxed to PCP. Pt given Rx's and instructed to take to pharmacy to be filled so he could start taking Atorvastatin tonight at bedtime, to which he and family states understanding. All personal belongings with family and pt at time of discharge. Pt wheeled off unit by aide with family members.
== END 2017-01-11 19:00 | disposition home or self-care (01) ==
LOC: SED 19:11 → EDBD 19:11 → EDUNIT# 19:11 → OSC 23:52
PROVIDERS: ADMIT Internal Medicine; ATTEND Internal Medicine
DX: G45.9 Transient cerebral ischemic attack, unspecified (principal); R73.9 Hyperglycemia, unspecified; D64.9 Anemia, unspecified; Z79.82 Long term (current) use of aspirin; Z79.899 Other long term (current) drug therapy
CPT/HCPCS: 36415; 70450; 70549; 70553; 71010; 80053; 80061; 81000; 83036; 83735; 84443; 84484; 85025; 85378; 93005; 96360; 99285; A9585; C8929; G0378; J1644; J7030